=== PATIENT | male | born 1960 | race Caucasian/White ===

== ENCOUNTER → 2019-05-24 13:11 | Outpatient (CLI) | payer OTHER, SELFPAY ==
[2019-03-28 19:17] VITALS: BMI 37.0
[2019-05-24 15:48] LABS: ALB/GLOB Ratio 1.3 RATIO (0.9-2.4); AST(SGOT) 15 U/L (15-37); Alanine Aminotransfer ALT/SGPT 30 U/L (16-61); Albumin, Serum 4.1 g/dL (3.2-5.0); Alkaline Phosphatase 74 U/L (45-117); Anion Gap 7 (5-15); BUN 20 mg/dL (7-18); BUN/Creat Ratio 22.1 RATIO (10-20); Chloride 107 mmol/L (98-107); Cholesterol 188 mg/dL (200); EST Glomerular Filtration Rate 91 mL/min (>60); Est Glom Filt Rate - Afr Amer 111 mL/min (>60); Globulin 3.1 g/dL (2.2-4.2); Glucose 87 mg/dL (74-106); High Density Lipoprotein 51 mg/dL; Potassium 3.9 mmol/L (3.5-5.1); Protein, Total 7.2 g/dL (6.4-8.2); Sodium Level 141 mmol/L (136-145); Triglycerides 113 mg/dL; Very Low Density Lipoprotein 23 mg/dL (5-40)
[2019-05-24 16:17] LABS: Hemoglobin A1c 6.1 % (4.2-6.3)
== END ==
PROVIDERS: PCP Family Medicine; Visit Provider Family Medicine
DX: Z00.00 Encounter for general adult medical examination without abnormal findings (principal); R73.01 Impaired fasting glucose
CPT/HCPCS: 36415; 80053; 80061; 83036

== ENCOUNTER → 2021-04-17 08:20 | Outpatient (CLI) | payer OTHER, SELFPAY | PROVIDERS: PCP Family Medicine; Referring Provider Family Medicine; Visit Provider Family Medicine | DX: R00.2 Palpitations (principal) | CPT/HCPCS: 93225; 93226 ==

== ENCOUNTER 2021-07-16 06:55 | Outpatient (CLI) | payer BC, SELFPAY ==
--- NOTE | 2021-07-16 06:59 | ECHOD_ITS ---
Reason For Study: ATRIAL FIB-FLUTTER Procedure This was a 2D Doppler, Color Flow transthoracic echocardiogram. Exam performed in department. Left Ventricle Normal LV size. Left ventricular systolic function is normal. The estimated ejection fraction is 60 %. Normal diastology for age. No regional wall motion abnormalities noted. Right Ventricle Normal RV size. Normal systolic function. Atria Normal left atrium. Normal right atrium. Mitral Valve Normal mitral valve. Tricuspid Valve Normal tricuspid valve. Mild tricuspid valve insufficiency. Pulmonary artery systolic pressure is 31 mmHg. Aortic Valve Normal aortic valve. Pulmonic Valve Normal pulmonic valve. Great Vessels Normal aortic root. The pulmonary artery is normal size. Normal inferior vena cava. Pericardium/Pleural No pericardial effusion. MMode/2D Measurements & Calculations LVIDd: 5.6 cm IVSd: 0.93 cm Ao root diam: 3.3 cm LVIDs: 3.6 cm LVPWd: 0.96 cm RVDd: 4.0 cm FS: 36.1 % LAV(MOD-bp): 71.5 ml LVAd ap4: 37.7 cm2 SV(MOD-sp4): 76.6 ml LAV(MOD-bp) Indexed: 30.6 ml/m2 LVLd ap4: 9.3 cm LAV(MOD-sp2): 70.6 ml EDV(MOD-sp4): 127.4 ml LAV(MOD-sp4): 71.5 ml EDV(sp4-el): 129.7 ml LVAs ap4: 20.9 cm2 LVLs ap4: 7.7 cm ESV(MOD-sp4): 50.8 ml ESV(sp4-el): 48.0 ml EF(MOD-sp4): 60.1 % EF(sp4-el): 63.0 % SV(sp4-el): 81.7 ml LA A4 area: 23.4 cm2 LA dimension(2D): 3.7 cm RA A4 area: 21.7 cm2 Time Measurements MV dec time: 0.21 sec Doppler Measurements & Calculations MV E max ulisses: 77.1 cm/sec Lat Peak E' Ulisses: 13.3 cm/sec Med Peak E' Ulisses: 13.0 cm/sec MV A max ulisses: 54.0 cm/sec E/E' lat: 5.8 E/E' med: 5.9 MV E/A: 1.4 Ao V2 max: 131.4 cm/sec LV V1 max: 102.5 cm/sec PA V2 max: 103.1 cm/sec Ao max P.9 mmHg LV V1 max P.2 mmHg TR max ulisses: 269.4 cm/sec TR max P.0 mmHg ECHO/Echo Complete Interpretation Summary Normal LV size. Left ventricular systolic function is normal. The estimated ejection fraction is 60 %. Pulmonary artery systolic pressure is 31 mmHg. Ordering Physician: Yury Fair Referring Physician: ALEX PERSON Performed By: Alicia Alicia RDCS
--- NOTE | 2021-07-16 11:17 | STRESSREP ---
Stress Test Report Exercise myocardial perfusion stress test. 60-year-old male with a history of atrial fib flutter. Resting EKG demonstrates sinus bradycardia with a rate of 56 bpm normal intervals are noted resting blood pressure is 128/88 mmHg. Patient exercised according to regular Kaden protocol for total duration of 8 minutes completing 2 minutes into stage III of the Kaden protocol the maximum heart rate attained was 1 and 41 bpm which was 88% max impact at heart rate the maximum workload was 10.1 metabolic equivalents. At rest there were no ST or T wave changes noted suggest ischemia occasional premature ventricular complex was noted and premature atrial complex. There were no ST or T wave changes noted suggest ischemia. The peak blood pressure was 180/90 mmHg. Myocardial perfusion protocol. 14.9 mCi of technetium 99m sestamibi was injected at rest. The patient exercised according to regular Kaden protocol for total duration of 8 minutes. At peak exercise 44.5 mCi of technetium 99m sestamibi was injected stress images were obtained stress and rest images were reconstructed and compared in the short axis vertical long and horizontal long axis. Gated images were also obtained Perfusion SPECT analysis: Review of the stress images demonstrate normal uptake of tracer noted in all areas of the myocardium the resting images smooth demonstrate normal uptake of tracer noted in all areas of the myocardium. No areas of reversibility are noted suggest ischemia and no previous infarct is noted. Gated SPECT analysis: The gated ejection fraction is 58%. Conclusion: Normal exercise myocardial perfusion stress test with no evidence of ischemia. Preserved ejection fraction.
== END 2021-07-16 23:59 | disposition home or self-care (01) ==
PROVIDERS: PCP Family Medicine; Referring Provider Internal Medicine Cardiovascular Disease; Visit Provider Internal Medicine Cardiovascular Disease
DX: I48.0 Paroxysmal atrial fibrillation (principal)
CPT/HCPCS: 78452; 93017; 93306; A9500; A4216

== ENCOUNTER → 2021-08-19 | Outpatient (CLI) | payer BC, SELFPAY ==
[2021-08-19 11:50] LABS: Anion Gap 3 (5-15); BUN 21 mg/dL (7-18); BUN/Creat Ratio 20.8 RATIO (10-20); Calcium,Total 8.8 mg/dL (8.5-10.1); Chloride 107 mmol/L (98-107); Creatinine, Serum 1.01 mg/dL (0.70-1.30); EST Glomerular Filtration Rate 80 mL/min (>60); Est Glom Filt Rate - Afr Amer 97 mL/min (>60); Glucose 104 mg/dL (74-106); Potassium 4.2 mmol/L (3.5-5.1); Sodium Level 138 mmol/L (136-145)
== END | disposition home or self-care (01) ==
LOC: LAB 10:02
PROVIDERS: PCP Family Medicine; Referring Provider Internal Medicine Cardiovascular Disease; Visit Provider Internal Medicine Cardiovascular Disease
DX: I48.0 Paroxysmal atrial fibrillation (principal); I47.1 Supraventricular tachycardia; Z51.81 Encounter for therapeutic drug level monitoring; Z79.899 Other long term (current) drug therapy
CPT/HCPCS: 36415; 80048

== ENCOUNTER 2021-08-22 10:44 | Day surgery (SDC) | payer BC, SELFPAY ==
[2021-08-21 09:15] VITALS: BMI 36.8
--- NOTE | 2021-08-22 08:30 | HP.PCM_ITS ---
History and Physical Date of Admission: 08/22/21 Pleasant 60-year-old man with a previous history of hypertension incomplete right bundle branch block obesity who originally presented with palpitations. He does remark that a few years ago he had an episode where he was speaking at a conference and could not get his words out. This lasted approximately 10 minutes or so. More recently he has had a fluttering episodes in his chest which have been short. As part of his work-up he had a 48-hour Holter monitor performed which demonstrated 47% atrial fibrillation. He did have occasional chest tightness with this. The minimum range was 40 bpm average of 92 bpm and the maximum 171 bpm in atrial fibrillation. The longest R to R interval was 1.8 seconds. His most recent lipid profile was excellent with an LDL of 108, HDL of 58 and total cholesterol of 196. His TSH is 0.57. He denies any chest pain shortness of breath or paroxysmal nocturnal dyspnea though he does say that when he went hunting the last time he appeared to have some exertional shortness of breath. He completed echocardiogram on 07/16/2021 that showed an ejection fraction of 60% and normal left and right atrium. He underwent stress test on 07/16/2021 that was negative for ischemia at 10.1 metabolic equivalents. He was started on flecainide 100 mg p.o. twice daily. He continued to remain in atrial fibrillation despite flecainide therapy. He has remained anticoagulated with Eliquis. He will proceed with cardioversion today. Intake Vital Signs: See EMR Intake Visit Reasons: DCCV Allergies No Known Allergies Allergy (Verified 06/19/21 08:44) Medications See EMR [facility] Medical History DDD (degenerative disc disease) Diverticulosis Essential hypertension GERD with esophagitis Hypersomnia Incomplete right bundle branch block Narrow complex tachycardia Neuropathy Obesity Paroxysmal atrial fibrillation Paroxysmal atrial flutter Surgical History History of colonoscopy (2017) History of esophagogastroduodenoscopy (2017) Family History Other Atrial fibrillation CHF (congestive heart failure) Diabetes Heart disease Hypertension Social History Smoking Status: Never smoker ROS Const Const: Negative for fatigue, weakness, headache(s), frequent falls, difficulty sleeping or excessive sweating Eyes Eyes: Negative for loss of peripheral vision, transient loss of vision, blurry vision, double vision or tunnel vision ENT ENT: Negative for headache(s), dizziness, Nosebleed/epistaxis or balance problems Cardio Chest Pain: No Palpitations: Yes Edema: None Muscle aches with walking: None Additional Details: One episode 09/2020 where he could not get his words out. This lasted approx 10 minutes Resp Respiratory: Positive for SOB with activity; Negative for SOB at rest, SOB orthopnea\SOB lying down, Cough or paroxysmal nocturnal dyspnea GI GI: Negative nausea, vomiting, heartburn or black,tarry stools : Negative for hematuria Musc Musc: Negative for muscle aches/ myalgia, muscle weakness, joint pain or balance problems Skin Skin: Negative non-healing lesions, rash or unusual bruising Neuro Neuro: Negative for dizziness, lightheadedness, near syncope, syncope, orthostatic symptoms, frequent falls, headache(s), weakness, blurry vision, double vision or lack of coordination [place] Hematologic/Lymphatic: Negative for easy bleeding or easy bruising Endo Endo: Negative for fatigue, excessive sweating or increased thirst/drinking Psych Psych: Negative for anxiety or depression Allergy Allergy/Immunology: Negative for hives and Negative for rash Cardiology Exam Const Appearance: cooperative, healthy appearing, no acute distress, well developed and well groomed Nutritional Appearance: average body habitus and well nourished Orientation: alert, awake and oriented x3 Head Head: normal to inspection, normocephalic and atraumatic Ears: hearing grossly normal bilaterally and external ears normal Nose: external nose normal, nares normal, nasal mucous membranes and turbinates normal, septum normal and no nasal discharge Face and Sinus: face symmetric Mouth: oral mucosae normal, tongue normal, oropharynx normal and moist mucous membranes Teeth and gingiva: dentition normal Throat: posterior oropharynx normal, tonsils normal and uvula midline Eyes General: appearance normal, both eyes and all related structures Eyelids: eyelids normal Conjunctivae: conjunctivae normal Pupils: PERRL, normal by confrontation and accommodation normal EOM: EOM intact bilaterally Neck Neck: normal visual inspection, trachea midline and no JVD JVD: +5 Carotids: normal carotid upstroke and bounding pulses Chest Chest inspection: normal inspection of the chest, symmetric chest movement and normal respiratory effort Auscultation: Bilateral: Clear to Auscultation Cardio Palpation: normal PMI Rate: regular rate Rhythm: irregular rhythm Heart sounds: S1 normal, S2 normal and normal, physiologic split S2; Negative rub, gallop or murmur GI GI: normal to inspection, soft, no hepatosplenomegaly and bowel sounds present Neuro General: patient alert, patient awake, patient oriented x3, gait normal, moves all extremities and no focal sensory deficit Skin Skin: no rashes or lesions noted Extremities Pulses: Normal: Right Femoral Pulse, Left Femoral Pulse, Right Dorsalis Pedis Pulse, Left Dorsalis Pedis Pulse, Right Posterior Tibial Pulse, Left Posterior Tibial Pulse, Right Radial Pulse and Left Radial Pulse Lower Extremity Edema: None: Bilateral Musculoskel Musculoskeletal: No joint tenderness Psych Psychological: normal affect Supplemental Info Supplemental Information Labs: LDL Cholesterol 114 mg/dL (0-130) HDL Cholesterol 51 mg/dL (40-) Triglycerides 113 mg/dL (-199) VLDL Cholesterol 23 mg/dL (5-40) Diagnostics: No Data to Display Pulmonary: No Data to Display Assessment and Plan Assessment and Plan (1) Paroxysmal atrial fibrillation: Status: Acute Comment: 03/2021 Orders: Orders: Echo Complete Today Nuclear Stress Test - Treadmil Today Plan - Dr. Yury Fair MD: His chads vas score is 3. His most recent echocardiogram showed a preserved ejection fraction. His stress test was negative for ischemia. He will proceed with cardioversion today. (2) Essential hypertension: Status: Chronic Plan - Dr. Yury Fair MD: He will continue with his lisinopril as well as his metoprolol, diet has also been emphasized and weight loss. His most recent echocardiogram showed a preserved ejection fraction and normal LV size.
--- NOTE | 2021-08-22 12:04 | PCM.OP.BLANK ---
Problems Associated Problem List Diagnoses (1) Paroxysmal atrial fibrillation: Operative Report Date of Procedure: 08/22/21 DC cardioversion. 60-year-old man with a history of paroxysmal symptomatic atrial fibrillation. The patient was brought to the cardiac catheterization lab in the postabsorptive nonsedated state. Patient was seen by Dr. Uriarte electrical cardioversion. Informed consent was obtained anterior-posterior pads were applied. The patient was administered 100 mg of intravenous propofol. 200 J of synchronized DC biphasic cardioversion energy were applied with prompt reversal to sinus rhythm. Patient tolerated the procedure well. No complications were noted. Conclusion: Successful DC cardioversion from atrial flutter to sinus rhythm.
--- NOTE | 2021-08-22 12:19 | PRO.PCM_ITS ---
Procedure Report Date of Procedure: 08/22/21 CONSCIOUS SEDATION REPORT DATE OF SERVICE: August 22, 2021 BRIEF HISTORY OF PRESENT ILLNESS: The patient is a 60-year-old male who presented to [facility] for an elective outpatient cardioversion due to underlying atrial fibrillation. The patient has never previously undergone a cardioversion in the past. He denies any prior anesthetic complications. The patient is systemically anticoagulated on Eliquis. His last surface echocardiogram demonstrated an ejection fraction of approximately 55%. He has never been diagnosed with obstructive sleep apnea or asthma. He is a non-smoker. PHYSICAL EXAMINATION: VITAL SIGNS: Reviewed and were acceptable. GENERAL: The patient is an obese male, in no apparent distress, speaking in full sentences. HEENT: Normocephalic, atraumatic. Mucous membranes are moist and pink. Good mouth opening noted. Trachea is midline. Good neck mobility. CHEST: S1, S2 irregularly irregular. No murmurs, rubs or gallops were noted. LUNGS: Clear to auscultation bilaterally without appreciable wheezes, rales or rhonchi. ABDOMEN: Soft, nontender, nondistended. Positive bowel sounds. EXTREMITIES: There is no clubbing, cyanosis or edema. ASA Class: II DESCRIPTION OF PROCEDURE: After confirmation of informed consent, the patient's anesthesia plan was reviewed in detail. Propofol was chosen. Risks and benefits were reviewed and the patient agreed to proceed. At 1149, the patient was given his first bolus of propofol. In total, the patient required 100 mg of propofol to achieve an appropriate level of sedation, after which time, he was given a 200 joule synchronized cardio[address] Dr. Fair at the bedside. This was successful in achieving normal sinus rhythm. The patient was monitored until 1205, at which time he reached his baseline mental status and function. The patient tolerated the procedure well. COMPLICATIONS: None ESTIMATED BLOOD LOSS: None RECOMMENDATIONS: Okay to recover in usual fashion. Procedures Pulmonary [id number]: [id number] Con Sedation
== END 2021-08-22 13:00 | disposition home or self-care (01) ==
LOC: CLSP 10:47
PROVIDERS: PCP Family Medicine; Referring Provider Internal Medicine Cardiovascular Disease; Visit Provider Internal Medicine Cardiovascular Disease
DX: I48.0 Paroxysmal atrial fibrillation (principal); I10 Essential (primary) hypertension; E66.9 Obesity, unspecified; Z79.899 Other long term (current) drug therapy
CPT/HCPCS: 92960; 93005; J7030

== ENCOUNTER → 2021-09-24 | Outpatient (CLI) | payer BC, SELFPAY | END | disposition home or self-care (01) | PROVIDERS: PCP Family Medicine; Visit Provider Internal Medicine Cardiovascular Disease | DX: I48.0 Paroxysmal atrial fibrillation (principal) | CPT/HCPCS: 93225; 93226 ==

== ENCOUNTER → 2022-06-17 | Outpatient (CLI) | payer BC, SELFPAY ==
--- NOTE | 2022-06-17 13:32 | US_ITS ---
ACR Level 3 findings have been noted. An addendum which confirms receipt of the report will follow. INDICATION: THYROID NODULE EXAMINATION: Ultrasound US Thyroid (eg thyroid, parathyroid, parotid) TECHNIQUE: Gomez scale and color doppler imaging was performed of the thyroid gland. COMPARISON: None. FINDINGS: RIGHT THYROID LOBE: 4.3 x 2.1 x 2.8 cm. Homogeneous echotexture with normal vascularity. 7 x 5 x 6 mm solid, hypoechoic nodule in the lower pole. LEFT THYROID LOBE: 4.0 x 1.6 x 1.9 cm. Homogeneous echotexture with normal vascularity. No thyroid nodules are present. ISTHMUS: 7.7 mm. 1.7 x 1.4 x 1.2 cm isoechoic solid nodule with calcification US/Thyroid IMPRESSION: 1.7 cm thyroid isthmus TR4 nodule meets TI-RADS criteria for FNA. Electronically Signed: Nagi Dixon MD at 21:08 EST ,
== END | disposition home or self-care (01) ==
PROVIDERS: PCP Family Medicine; Visit Provider Family Medicine
DX: E04.1 Nontoxic single thyroid nodule (principal)
CPT/HCPCS: 76536